=== PATIENT | female | born 1960 | race Two or more races ===

== ENCOUNTER 2016-05-08 13:21 | Emergency (ER) | payer MEDICAID ==
[~2016-05-08] VITALS: Ht 170.2 cm; Wt 96.6 kg
[~2016-05-08 13:21] MED LIST: LISI-275 PO
[2016-05-08 14:02] VITALS: BP 127/78
[2016-05-08 14:35] LABS: Basophils # (auto) 0.1 uL; Basophils % (auto) 1.8 % (0.0-2.0); Eosinophils # (auto) 0.1 uL; Eosinophils % (auto) 1.5 % (0.0-7.0); Hematocrit 45.3 % (36.0-46.0); Hemoglobin 14.7 g/dL (12.2-16.2); Lymphocytes # (auto) 2.2 uL; Lymphocytes % (auto) 33.5 % (10.0-50.0); Mean Corpuscular Hgb Conc. 32.4 g/dL (32.0-36.0); Mean Corpuscular Volume 92.5 fL (80.0-100.0); Mean Platelet Volume 8.4 fL (7.4-10.4); Monocytes # (auto) 0.5 uL; Monocytes % (auto) 7.1 % (0.0-12.0); Neutrophils # (auto) 3.8 uL; Neutrophils % (auto) 56.1 % (37.0-80.0); Platelet Count (auto) 265 10^3/uL (140-450); Red Cell Distribution Width 12.5 % (11.6-16.0); White Blood Cell 6.7 10^3/uL (4.4-10.8)
[2016-05-08 15:04] LABS: Albumin 3.8 g/dL (3.4-5.0); BUN/Creatinine Ratio 15.8; Bilirubin, Total 0.3 mg/dL (0.2-1.0); Calcium 9.3 mg/dL (8.5-10.1); Potassium 4.1 mmol/L (3.5-5.1); Total Protein 7.2 g/dL (6.4-8.2)
== END 2016-05-08 23:31 | disposition left against medical advice (07) ==
LOC: ER 13:34
DX: R10.9 Unspecified abdominal pain (principal); Z53.21 Procedure and treatment not carried out due to patient leaving prior to being seen by health care provider
CPT/HCPCS: 36415; 74176; 80053; 82150; 83690; 85025

== ENCOUNTER 2017-01-16 09:16 | Inpatient (IN) | payer OTHER ==
[2017-01-13 11:51] LABS: Basophils # (auto) 0 uL; Basophils % (auto) 0.5 % (0.0-2.0); CONDITION Y; Eosinophils # (auto) 0.1 uL; Eosinophils % (auto) 1.3 % (0.0-7.0); Hematocrit 43.9 % (36.0-46.0); Hemoglobin 14.9 g/dL (12.2-16.2); Lymphocytes # (auto) 1.8 uL; Lymphocytes % (auto) 31.7 % (10.0-50.0); Mean Corpuscular Hemoglobin 30.8 pg (28.0-32.0); Mean Corpuscular Hgb Conc. 33.8 g/dL (32.0-36.0); Mean Platelet Volume 8.5 fL (6.9-10.8); Monocytes # (auto) 0.5 uL; Monocytes % (auto) 8.7 % (0.0-12.0); Neutrophils # (auto) 3.4 uL; Neutrophils % (auto) 57.8 % (37.0-80.0); Platelet Count (auto) 255 10^3/uL (140-450); Red Cell Distribution Width 13.4 % (11.8-14.3); White Blood Cell 5.8 10^3/uL (4.4-10.8)
[2017-01-13 11:59] LABS: Urine Bilirubin Negative (Negative); Urine Blood Negative /uL (Negative); Urine Color Yellow (Yellow); Urine Glucose Normal (Normal); Urine Ketone Negative (Negative); Urine Nitrite Negative (Negative); Urine RBC <1 /hpf (0 - 4); Urine Squamous Epithelial Cell FEW /hpf (<5); Urine Urobilinogen Normal (Negative); Urine pH 7.5 (5.0-8.0)
[2017-01-13 12:06] LABS: INR 0.95 (0.9-1.15); Partial Thromboplastin Time 31.6 sec (22.64-33.71); Prothrombin Time 10.3 sec (9.37-12.3)
[2017-01-13 12:17] LABS: BUN/Creatinine Ratio 19.7; Calcium 8.8 mg/dL (8.5-10.1); Potassium 4.2 mmol/L (3.5-5.1)
[~2017-01-16] VITALS: Ht 170.2 cm; Wt 112.1 kg
[~2017-01-16 09:16] MED LIST changes: -LISI-275 PO; +LOSA25TA9 PO; +OMEP20CA74 PO
[2017-01-16] MEDS ORDERED: ceFOXitin 2GM/100ML D5W 100 ML IV ONE (12:23)
[2017-01-16] MEDS ORDERED: BUPIVACAINE 0.25% INJ 50ML VIAL ONE (12:46)
[2017-01-16] MEDS ORDERED: LIDOCAINE W/ EPINEPHRINE 1 % INJ 30ML ONE (12:46)
[2017-01-16] MEDS ORDERED: MIDAZOLAM HCL 1MG/1ML-2 ML VIAL ONE (13:29)
[2017-01-16] MEDS ORDERED: fentaNYL CITRATE 100 MCG/2 ML VL ONE ×2 (13:29→16:46)
[2017-01-16] MEDS ORDERED: ROCURONIUM 10MG/ML 10ML VIAL IV ONE (13:33)
[2017-01-16] MEDS ORDERED: PROPOFOL 10 MG/ML 20 ML IV ONE (13:33)
[2017-01-16] MEDS ORDERED: MANNITOL FTV 25% 12.5 GM/50 ML 50 ML IV ONE ×3 (14:16→16:30)
[2017-01-16] MEDS ORDERED: MORPHINE SULFATE INJECTION 1 ML ONE (14:43)
[2017-01-16] MEDS ORDERED: fentaNYL CITRATE 100 MCG/2 ML VL IV PRN (15:30)
[2017-01-16] MEDS ORDERED: ONDANSETRON HCL 4 MG/2 ML VIAL IV ONE (15:30)
[2017-01-16] MEDS ORDERED: LABETALOL HCL 5 MG/ML 4ML SYRINGE IV PRN (15:30)
[2017-01-16] MEDS ORDERED: ONDANSETRON HCL 4 MG/2 ML VIAL ONE (15:35)
[2017-01-16] MEDS ORDERED: METOCLOPRAMIDE HCL 5MG/ml INJ 2ml VIAL ONE (15:35)
[2017-01-16] MEDS ORDERED: DEXAMETHASONE SOD PHOS 10MG/1ML VIAL INJ ONE (15:35)
[2017-01-16] MEDS ORDERED: MANNITOL 20 % (20GM/100ML) 0 ML IV ONE (16:13)
[2017-01-16] MEDS ORDERED: GLYCOPYRROLATE 0.2 MG/ML 1ML VIAL ONE (16:26)
[2017-01-16] MEDS ORDERED: NEOSTIGMINE 1 MG/ML INJ (10mg/10ML VIAL) ONE (16:26)
[2017-01-16] MEDS ORDERED: ACETAMINOPHEN/CODEINE#3 (300/30mg) TAB PO PRN (16:45)
[2017-01-16] MEDS ORDERED: diphenhdrAMINE HCL 50 MG/1 ML VL IV PRN (16:45)
[2017-01-16] MEDS: HYDROmorphone HCL 2 MG/ML VL IV PRN ×3 (17:16→20:19)
[2017-01-16 18:21] LABS: BUN/Creatinine Ratio 9.8; Potassium 3.7 mmol/L (3.5-5.1)
[2017-01-16 18:37] VITALS: BP 113/65
[2017-01-16] MEDS: LOSARTAN POTASSIUM 25 MG TAB PO SCH (18:44)
[2017-01-16] MEDS: CEFOXITIN SODIUM 1 GM in D5W 5% 50 ML IV SCH (18:45)
[2017-01-16] MEDS: PANTOPRAZOLE 40 MG TAB PO SCH (18:45)
[2017-01-16] MEDS: D5W/SOD CHL 0.45% 1,000 ML IV SCH (19:00)
[2017-01-16 20:00] VITALS: BP 106/67
[2017-01-16 22:00] VITALS: BP 106/67
[2017-01-17] VITALS (9 sets, daily range): BP systolic 104–159; BP diastolic 69–85
[2017-01-17] MEDS: D5W/SOD CHL 0.45% 1,000 ML IV SCH ×3 (00:32→16:29)
[2017-01-17] MEDS: CEFOXITIN SODIUM 1 GM in D5W 5% 50 ML IV SCH ×2 (01:13→08:42)
[2017-01-17] MEDS: ONDANSETRON HCL 4 MG/2 ML VIAL IV PRN ×4 (01:14→20:18)
[2017-01-17] MEDS: HYDROmorphone HCL 2 MG/ML VL IV PRN ×4 (01:14→20:30)
[2017-01-17] MEDS ORDERED: PANT40TA2 PO (07:46)
[2017-01-17] MEDS ORDERED: LOSA25TA8 PO (07:47)
[2017-01-17] MEDS: LOSARTAN POTASSIUM 25 MG TAB PO SCH (18:04)
[2017-01-17] MEDS: PANTOPRAZOLE 40 MG TAB PO SCH (18:04)
[2017-01-18] VITALS (7 sets, daily range): BP systolic 111–141; BP diastolic 66–87
[2017-01-18] MEDS: D5W/SOD CHL 0.45% 1,000 ML IV SCH ×4 (01:02→23:36)
[2017-01-18] MEDS: ONDANSETRON HCL 4 MG/2 ML VIAL IV PRN ×6 (01:02→23:36)
[2017-01-18] MEDS: HYDROmorphone HCL 2 MG/ML VL IV PRN ×6 (01:03→23:35)
[2017-01-18] MEDS: PANTOPRAZOLE 40 MG TAB PO SCH (17:49)
[2017-01-18] MEDS: LOSARTAN POTASSIUM 25 MG TAB PO SCH (17:50)
[2017-01-19 04:51] VITALS: BP 127/72
[2017-01-19] MEDS: ONDANSETRON HCL 4 MG/2 ML VIAL IV PRN ×3 (04:57→14:37)
[2017-01-19] MEDS: HYDROmorphone HCL 2 MG/ML VL IV PRN ×3 (04:57→14:37)
[2017-01-19 08:00] VITALS: BP 127/72
[2017-01-19 09:00] VITALS: BP 137/78
[2017-01-19] MEDS: D5W/SOD CHL 0.45% 1,000 ML IV SCH (10:27)
[2017-01-19 13:00] VITALS: BP 133/72
[2017-01-19 13:05] VITALS: BP 137/78
== END 2017-01-19 15:32 | disposition home or self-care (01) | DRG 658 ==
LOC: SUR 09:16 → TELE-WESTW 18:17
PROVIDERS: ADMIT Urology; ATTEND Urology
PROC: 8E0W4CZ Robotic Assisted Procedure of Trunk Region, Percutaneous Endoscopic Approach (ICD-10-PCS; 2017-01-16)
PROC: 0TB14ZZ Excision of Left Kidney, Percutaneous Endoscopic Approach (ICD-10-PCS; principal; 2017-01-16 13:33)
DX: C64.2 Malignant neoplasm of left kidney, except renal pelvis (principal); I11.0 Hypertensive heart disease with heart failure; I50.9 Heart failure, unspecified; K21.9 Gastro-esophageal reflux disease without esophagitis; Z79.899 Other long term (current) drug therapy; Z90.49 Acquired absence of other specified parts of digestive tract; Z90.89 Acquired absence of other organs; Z87.891 Personal history of nicotine dependence; Z83.3 Family history of diabetes mellitus; Z80.9 Family history of malignant neoplasm, unspecified
CPT/HCPCS: 36415; 80048; 81001; 85025; 85610; 85730; 86850; 86900; 86901; 87086; J0694; J1100; J2250; J2405; J2704; J3490; J7060